=== PATIENT | female | born 1965 | race Caucasian/White ===

== ENCOUNTER → 2023-09-16 13:24 | Outpatient (REF) | payer BC, SELFPAY | LOC: WDC 13:24 | PROVIDERS: ATTENDING PHYSICIAN Family Medicine | DX: Z12.31 Encounter for screening mammogram for malignant neoplasm of breast (principal) | CPT/HCPCS: 77063; 77067 ==

== ENCOUNTER → 2023-09-17 08:57 | Outpatient (REF) | payer BC, SELFPAY | LOC: RAD 08:57 | PROVIDERS: ATTENDING PHYSICIAN Internal Medicine; FAMILY PHYSICIAN Family Medicine | DX: R01.1 Cardiac murmur, unspecified (principal); R07.9 Chest pain, unspecified; R06.09 Other forms of dyspnea; M54.2 Cervicalgia; I77.9 Disorder of arteries and arterioles, unspecified | CPT/HCPCS: 73560; 73565; 93306; 93880 ==

== ENCOUNTER → 2023-09-25 16:30 | Outpatient (REF) | payer BC, SELFPAY | LOC: RAD 16:30 | PROVIDERS: ATTENDING PHYSICIAN Internal Medicine; FAMILY PHYSICIAN Family Medicine | DX: E78.00 Pure hypercholesterolemia, unspecified (principal); Z82.49 Family history of ischemic heart disease and other diseases of the circulatory system | CPT/HCPCS: 75571 ==

== ENCOUNTER → 2024-07-21 07:39 | Outpatient (REF) | payer BC, SELFPAY | LOC: EMG 07:39 | PROVIDERS: ATTENDING PHYSICIAN Orthopaedic Surgery; FAMILY PHYSICIAN Family Medicine | DX: R20.0 Anesthesia of skin (principal) | CPT/HCPCS: 95886; 95909 ==

== ENCOUNTER → 2025-06-14 10:51 | Outpatient (REF) | payer BC, SELFPAY | LOC: HWRCS 10:51 | PROVIDERS: ATTENDING PHYSICIAN Family Medicine | DX: R94.31 Abnormal electrocardiogram [ECG] [EKG] (principal) | CPT/HCPCS: 93306 ==

== ENCOUNTER → 2025-07-20 19:01 | Outpatient (REF) | payer BC, SELFPAY | LOC: WDC 19:01 | PROVIDERS: ATTENDING PHYSICIAN Obstetrics & Gynecology Gynecology; FAMILY PHYSICIAN Family Medicine | DX: Z12.31 Encounter for screening mammogram for malignant neoplasm of breast (principal) | CPT/HCPCS: 77063; 77067 ==